=== PATIENT | male | born 1940 | race Caucasian/White ===

== ENCOUNTER → 2016-12-04 | Outpatient (CLI) | payer OTHER ==
[~2016-12-04] MED LIST: IOPAMIDOL (ISOVUE-370) 150 ML BTL IV ONE
[2016-12-04 11:42] LABS: GLOMERULAR FILTRATION RATE > 60
--- NOTE | 2016-12-04 12:44 | CT ---
CT Head Without and With Contrast History: Possible stroke or TIA, gait and mobility issues x3 weeks, right ear hearing loss, left paro tidectomy (benign), history of prostate cancer, Contrast: 66 mL Isovue 300. Comparison: None Technique: Pre- and postcontrast images performed through the brain. Soft tissue and bone window anal yses are reviewed. Dose reduction techniques were utilized. Findings: There is nonenhancing hypodensity in the left external capsule, that may represent a subacu te or old infarction. There is no evidence of hemorrhage. Ventricular size is consistent with the sul ci which are mildly atrophic and consistent with the patient's age. There is no subdural or subarachn oid blood. There is atherosclerotic calcification of both distal internal carotid arteries and of the high cervical left vertebral artery. No obvious major vessel thrombosis. There is no intracranial ma ss or evidence of metastatic disease. No lytic or sclerotic calvarial lesions are identified. Inciden tally noted is nodular mucosal thickening involving the right maxillary sinus and opacifying the ante rior right ethmoid sinuses. The mastoid sinuses and middle ears are normally aerated. The internal au ditory canals are symmetric and normal. 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 If clinically indicated MRI of the br ain would be useful. Results called to Dr. Marty Farmer at 12:38 PM. General information for patients regarding this examination can be found at [email or web address]. If you have questions or comments about this report, please contact me at [phone] (hospital) or [phone] (cell).
== END ==
LOC: FIMAGING 10:55
PROVIDERS: ATTEND Internal Medicine
DX: R26.89 Other abnormalities of gait and mobility (principal)
CPT/HCPCS: 70470; Q9967

== ENCOUNTER 2016-12-06 09:28 | Emergency (ER) | payer OTHER ==
[2016-12-06 09:33] VITALS: TEMP 98.1
--- NOTE | 2016-12-06 09:45 | CPEKG ---
Heart Rate: 66 RR Interval: 909 P-R Interval: 188 QRSD Interval: 108 QT Interval: 456 QTC Interval: 478 P [place]: 41 QRS [place]: 52 T Wave [place]: 45 EKG Severity - BORDERLINE ECG - EKG Impression: SINUS RHYTHM EKG Impression: BORDERLINE PROLONGED QT INTERVAL Electronically Signed By: Renetta Trujillo 06-Dec-2016 15:19:13
--- NOTE | 2016-12-06 10:05 | EDPHY ---
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 Patient was having some balance issues and saw his primary care physician, Dr. Farmer, on Saturday. CT scan revealed possible CVA. He follow-up with Dr. Jeovanny Gonzalez from Neurology last evening. He was told that he did indeed have a stroke. He has been taking Eliquis for atrial fibrillation was told to continue this medication. He is scheduled for a carotid ultrasound today and an MRI on Saturday. Patient presents to the emergency department now because he was having episodes of tearfulness. Patient states he is unable to talk without starting to cry. This is not typical. He has no new headache balance issues. No neck pain. No focal weakness or numbness. No fevers or chills. REVIEW OF SYSTEMS: My complete review of systems is negative except as mentioned in the HPI. Past Medical/Surgical History: Includes hypertension, atrial fibrillation, depression, asthma Past surgical history includes: Prostatectomy, left parotidectomy, tonsillectomy, back surgery, heel surgery Social history: The patient is . Does not smoke use alcohol. Smoking Status: Never smoked Physical Exam: Vitals noted GENERAL: No acute distress, alert. Intermittently tearful on exam. HEENT: Eyes normal to inspection, normal pharynx, no signs of dehydration. NECK: No thyromegaly, no lymphadenopathy, supple. RESPIRATORY: Clear to auscultation bilaterally, no rales, rhonchi or wheezing. CVS: Regular rate and rhythm, no rubs, murmurs, or gallops. ABDOMEN: Soft, nontender, nondistended, no organomegaly. BACK: Normal to inspection, no CVA tenderness. SKIN: Normal color, no rash, warm, dry. No pallor. EXTREMITIES: No pedal edema, no calf tenderness, no Homans sign or cords, no joint swelling. NEURO/PSYCH: Higher functions: Alert and Oriented x3. Normal speech and cognition. Normal mood and affect. Cranial nerves: Normal as tested. Cerebellar: Normal as tested. Good finger to nose, good [id number], normal gait. Peripheral exam: Normal motor exam. Normal sensation. Normal reflexes. Constitutional: Initial Vital Signs Temperature (C) 36.7 C 12/06/16 09:29 Heart Rate 61 12/06/16 09:29 Respiratory Rate 16 12/06/16 09:29 Blood Pressure 104/62 12/06/16 09:29 O2 Sat (%) 91 L 12/06/16 09:29 O2 Delivery Mode Nasal Cannula O2 (L/minute) 2 Allergies/Adverse Reactions: No Known Allergies Allergy (Verified 09/29/14 13:46) Home Medications: Medication Instructions Recorded Fluticasone/Salmeter 100/50Mcg 1 inh IH BID 08/30/14 [Advair 100/50 (*)] Herbals/Supplements -Info Only 1 ea PO DAILY 08/30/14 Losartan Potassium [Cozaar] 100 mg PO DAILY 08/30/14 Multivitamins [Multivitamin (*)] 1 each PO DAILY 08/30/14 Pramipexole Di-HCl [Mirapex 0.25 0.25 mg PO DAILY@1900 08/30/14 mg (*)] Apixaban [Eliquis] 5 mg PO BID #60 tab 09/01/14 Sotalol HCl [Betapace 80 MG (*)] 80 mg PO BID #60 tab 09/01/14 Verapamil ER [Calan SR/ER 120MG 120 mg PO DAILY #30 tab 09/01/14 (*)] Medical Decision Making ED Course/Re-evaluation: In the emergency department I discussed possible etiologies with the patient. Answered all their questions. An IV was placed. Laboratory studies and EKG were ordered. I paged Dr. Jeovanny Gonzalez. EKG shows normal sinus rhythm, normal rate, normal axis, normal intervals. There are no ST or T-wave abnormalities. EKG is normal as interpreted by me. I reviewed the patient's CT imaging from 12/04/2016. Patient has an age indeterminate left external capsule infarction. No active bleeding. I discussed case with Dr. Jeovanny Gonzalez. He felt the patient's symptoms were consistent with pseudobulbar affect. He would treat this as an outpatient and recommended the patient be discharged from the emergency department after his testing here is complete. We discussed the patient was scheduled for carotid ultrasound today at 10, but that he missed that appointment because he was in the emergency department. This test will be completed refer his discharge. Patient has a mildly elevated sodium 146. Chemistry panel is otherwise unremarkable. CBC is normal. INR is 1.26. Carotid ultrasound: Please refer the dictated report by the radiologist. No obstructing lesion. I discussed this with Dr. Martinez. I discussed all the results and the plan with the patient answered all his questions. At time of discharge the patient was doing well. No new complaints. No focal neurologic deficits. The patient will undergo MRI imaging tomorrow. He will follow up with Dr. Gonzalez. He was given warnings prior to leaving will return with worsening symptoms. Differential Diagnosis: My differential includes but is not limited to ischemic CVA, hemorrhagic CVA, dissection, aneurysm, electrolyte abnormality, sugar abnormality, depression - Data Points Laboratory Results: Laboratory Results 12/06/16 09:40 12/06/16 09:40 12/06/16 09:40 WBC 6.90 10^3/uL (3.80-9.50) RBC 5.28 10^6/uL (4.40-6.38) Hgb 16.7 g/dL (13.7-17.5) POC Hgb 17.3 gm/dL (14.5-17.3) Hct 49.3 % (40.0-51.0) POC Hct 51 H % (42.8-50.6) MCV 93.4 fL (81.5-99.8) MCH 31.6 pg (27.9-34.1) MCHC 33.9 g/dL (32.4-36.7) RDW 12.3 % (11.5-15.2) Plt Count 309 10^3/uL (150-400) MPV 9.7 fL (8.7-11.7) Neut % (Auto) 61.9 % (39.3-74.2) Lymph % (Auto) 20.9 % (15.0-45.0) Person % (Auto) 11.3 % (4.5-13.0) Eos % (Auto) 3.9 % (0.6-7.6) Baso % (Auto) 1.7 % (0.3-1.7) Nucleat RBC Rel Count 0.0 % (0.0-0.2) Absolute Neuts (auto) 4.27 10^3/uL (1.70-6.50) Absolute Lymphs (auto) 1.44 10^3/uL (1.00-3.00) Absolute Monos (auto) 0.78 10^3/uL (0.30-0.80) Absolute Eos (auto) 0.27 10^3/uL (0.03-0.40) Absolute Basos (auto) 0.12 H 10^3/uL (0.02-0.10) Absolute Nucleated RBC 0.00 10^3/uL (0-0.01) Immature Gran % 0.3 % (0.0-1.1) Immature Gran # 0.02 10^3/uL (0.00-0.10) PT 15.8 H SEC (12.0-15.0) INR 1.26 H (0.83-1.16) APTT 29.1 SEC (23.0-38.0) POC Sodium 146 H mEq/L (134-144) Sodium 142 mEq/L (134-144) POC Potassium 5.0 mEq/L (3.3-5.0) Potassium 5.0 mEq/L (3.5-5.2) POC Chloride 105 mEq/L (96-108) Chloride 106 mEq/L (97-110) Carbon Dioxide 25 mEq/l (22-31) Anion Gap 11 mEq/L (8-16) POC BUN 30 H mg/dL (7-23) BUN 22 mg/dL (7-23) Creatinine 1.0 mg/dL (0.7-1.3) POC Creatinine 1.0 mg/dL (0.8-1.5) Estimated GFR > 60 Glucose 106 H mg/dL (70-100) POC Glucose 110 H mg/dL (70-100) Calcium 9.2 mg/dL (8.5-10.4) Troponin I < 0.012 ng/mL (0-0.034) Specimen Hemolysis 113 Point of Care Test Results: 12/06/16 09:40 POC Sodium 146 H POC Potassium 5.0 POC Chloride 105 POC BUN 30 H POC Creatinine 1.0 POC Glucose 110 H Departure - Departure Disposition: Home, Routine, Self-Care Clinical Impression: Pseudobulbar affect Condition: Good Instructions: Self Care Measures After a Stroke (ED) Additional Instructions: Return with increasing headache, weakness, numbness or any other concerns. Referrals: Jeovanny Gonzalez MD [Medical Doctor] - 5-7 days, call for appt.
[2016-12-06 10:10] LABS: % IMMATURE GRANULYOCYTES 0.3 % (0.0-1.1); ABSOLUTE IMMATURE GRANULOCYTES 0.02 10^3/uL (0.00-0.10); ADD DIFF? NO; ADD MORPH? NO; ADD SCAN? NO; ATYPICAL LYMPHOCYTE FLAG 10 (0-99); FRAGMENT RBC FLAG 0 (0-99); HEMATOCRIT 49.3 % (40.0-51.0); HEMOGLOBIN 16.7 g/dL (13.7-17.5); LEFT SHIFT FLG 0 (0-99); LIPEMIA HEMOLYSIS FLAG 90 (0-99); MEAN CELL HEMOGLOBIN 31.6 pg (27.9-34.1); MEAN CELL HEMOGLOBIN CONCENTR. 33.9 g/dL (32.4-36.7); MEAN CELL VOLUME 93.4 fL (81.5-99.8); MEAN PLATELET VOLUME 9.7 fL (8.7-11.7); PLATELET CLUMPS FLAG 10 (0-99); PLATELET COUNT 309 10^3/uL (150-400); RED BLOOD CELL COUNT 5.28 10^6/uL (4.40-6.38); RED CELL DISTRIBUTION WIDTH 12.3 % (11.5-15.2)
[2016-12-06 10:17] LABS: INR 1.26 (0.83-1.16); PROTIME(PATIENT) 15.8 SEC (12.0-15.0)
[2016-12-06 10:18] LABS: APTT 29.1 SEC (23.0-38.0)
[2016-12-06 10:22] LABS: ANION GAP 11 mEq/L (8-16); CALCIUM 9.2 mg/dL (8.5-10.4); CARBON DIOXIDE 25 mEq/l (22-31); CHLORIDE 106 mEq/L (97-110); GLOMERULAR FILTRATION RATE > 60; GLUCOSE 106 mg/dL (70-100); SODIUM 142 mEq/L (134-144); SPECIMEN HEMOLYSIS 113
[2016-12-06 10:31] LABS: TROPONIN I < 0.012 ng/mL (0-0.034)
--- NOTE | 2016-12-06 12:24 | US ---
Bilateral Duplex Carotid Sonography Clinical Indications: 76-year-old male in the ED with a history medically-controlled hypertension, TI A(s), and balance problems. Rule out hemodynamically significant stenosis. Technique: The cervical portions of the carotid and vertebral arteries were imaged and interrogated by color and pulsed Doppler. Spectral analysis was performed. Cine clips are stored on PACS. COMPARISON STUDY: None. Findings: Right Carotid Artery: The common carotid artery, bifurcation, and origin of the internal and externa l carotid artery are well imaged. Doppler velocity estimates and color Doppler spectra are normal, w ith no sonographic evidence of a flow-limiting stenosis. The peak systolic velocity in the internal c arotid artery is 53 cm/s, with a peak diastolic velocity of 23 cm/s. The ICA to CCA systolic and farris tolic ratios are normal. Left Carotid Artery: The common carotid artery, bifurcation, and origin of the internal and external carotid artery are well imaged. Doppler velocity estimates and color Doppler spectra are normal, wi th no sonographic evidence of a flow-limiting stenosis. There is some echogenic atherosclerotic plaqu e involving the carotid bulb extending into the proximal internal and external carotid arteries. The peak systolic velocity in the internal carotid artery is 43 cm/s, with a peak diastolic velocity of 1 6 cm/s. The ICA to CCA systolic and diastolic ratios are normal. The ICA right to left systolic ratio is normal. Vertebral Arteries: Antegrade flow is shown by pulsed Doppler of each vertebral artery. The peak sys tolic velocity in the right vertebral artery is 31 cm/s, and in the left vertebral artery is 29 cm/s. Impression: 1. There is mild atherosclerotic plaque involving the left carotid artery; however, there is no hemod ynamically significant ICA stenosis on either side. 2. Patent, antegrade vertebral arteries. Results were conveyed to Dr. Mildred Trujillo. Measurement of carotid stenosis is based on velocity parameters that correlate the residual internal carotid diameter with [place] Symptomatic Carotid Endarterectomy Trial (NASCET) based stenosis levels. A Document Only message has been documented for MILDRED TRUJILLO in the [employer] system on 12/06/2016 12:21, Message ID [id number].
[2016-12-06 12:28] VITALS: BP 128/90; PULSE 86; RESP 18; O2SAT 96
== END 2016-12-06 12:58 | disposition home or self-care (01) ==
DX: F48.2 Pseudobulbar affect (principal); I10 Essential (primary) hypertension; J45.909 Unspecified asthma, uncomplicated
CPT/HCPCS: 82947-QW

== ENCOUNTER → 2016-12-10 | Outpatient (CLI) | payer OTHER | LOC: BHFA 10:00 | PROVIDERS: ATTEND Internal Medicine Cardiovascular Disease | DX: I63.9 Cerebral infarction, unspecified (principal) ==

== ENCOUNTER 2017-01-07 08:26 | Inpatient (IN) | payer OTHER ==
[2017-01-07] MEDS ORDERED: ONDANSETRON 4 MG/2 ML VIAL IVP ONE (08:48)
[2017-01-07] MEDS ORDERED: fentaNYL 100 MCG/2 ML INJ IVP ONE (08:48)
[2017-01-07 09:00] LABS: % IMMATURE GRANULYOCYTES 0.4 % (0.0-1.1); ABSOLUTE IMMATURE GRANULOCYTES 0.03 10^3/uL (0.00-0.10); ADD DIFF? NO; ADD MORPH? NO; ADD SCAN? NO; ATYPICAL LYMPHOCYTE FLAG 0 (0-99); FRAGMENT RBC FLAG 0 (0-99); HEMATOCRIT 45.8 % (40.0-51.0); HEMOGLOBIN 15.4 g/dL (13.7-17.5); LEFT SHIFT FLG 0 (0-99); LIPEMIA HEMOLYSIS FLAG 80 (0-99); MEAN CELL HEMOGLOBIN CONCENTR. 33.6 g/dL (32.4-36.7); MEAN PLATELET VOLUME 9.9 fL (8.7-11.7); PLATELET CLUMPS FLAG 0 (0-99); PLATELET COUNT 212 10^3/uL (150-400); RED BLOOD CELL COUNT 4.82 10^6/uL (4.40-6.38); RED CELL DISTRIBUTION WIDTH 13.4 % (11.5-15.2)
--- NOTE | 2017-01-07 09:04 | EDPHY ---
H & P Time Seen by Provider: 01/07/17 08:46 HPI/ROS: Chief complaint. Abdominal pain HPI. 76-year-old male presents emergency department with right lower quadrant pain. He was sitting on the toilet this morning had sudden onset of right mid abdominal pain and maybe radiation to the right flank. He does have a kidney stone history but not for many years. Today he had nausea without vomiting. He has not had urinary symptoms. He notes it does not hurt to push on his abdomen though it hurts him inside. He feels that he can't quite find a comfortable position. ROS Constitutional. no fever/chills, no weakness Eyes. no problems with vision ENT. no sore throat, no nasal drainage Cardiovascular. no chest pain Respiratory. no shortness of breath, no cough Abdominal. Right mid abdominal pain with nausea . no problems urinating MS. no calf pain/swelling, no neck/back pain, no joint pain Skin. no rash Lymph. no swollen glands Neuro. no headache, no dizziness, no difficulty walking or with speech Past Medical/Surgical History: Past medical history is significant for hypertension, atrial fibrillation, depression, asthma, prostate cancer Social History: , nonsmoker, no alcohol Smoking Status: Never smoked Physical Exam: General Appearance: Alert well-developed male mild distress vitals are stable Eyes: Pupils equal and round no pallor or injection. ENT, Mouth: Mucous membranes are moist. Respiratory: There are no retractions, lungs are clear to auscultation. Cardiovascular: Regular rate and rhythm. Gastrointestinal: Abdomen is soft and nontender, no masses, bowel sounds normal. Patient shows me he is tender in the right flank and right mid abdomen but there is no discomfort with deep palpation. No tenderness at McBurney's point. Normal bowel sounds. No masses Neurological: Awake and alert, sensory and motor exams grossly normal. Skin: Warm and dry, no rashes. Musculoskeletal: Neck is supple nontender. Extremities symmetrical, full range of motion. Psychiatric: Patient is oriented X 3, there is no agitation. Constitutional: Initial Vital Signs Temperature (C) 36.5 C 01/07/17 08:34 Heart Rate 99 01/07/17 08:34 Respiratory Rate 16 01/07/17 08:34 Blood Pressure 105/86 H 01/07/17 08:34 O2 Sat (%) 92 01/07/17 08:34 O2 Delivery Mode Nasal Cannula O2 (L/minute) 2 Allergies/Adverse Reactions: No Known Allergies Allergy (Verified 09/29/14 13:46) Home Medications: Medication Instructions Recorded Fluticasone/Salmeter 100/50Mcg 1 inh IH BID 08/30/14 [Advair 100/50 (*)] Herbals/Supplements -Info Only 1 ea PO DAILY 08/30/14 Losartan Potassium [Cozaar] 100 mg PO DAILY 08/30/14 Multivitamins [Multivitamin (*)] 1 each PO DAILY 08/30/14 Pramipexole Di-HCl [Mirapex 0.25 0.25 mg PO DAILY@1900 08/30/14 mg (*)] Apixaban [Eliquis] 5 mg PO BID #60 tab 09/01/14 Verapamil ER [Calan SR/ER 120MG 120 mg PO DAILY #30 tab 09/01/14 (*)] Clonazepam 01/07/17 Diltiazem 01/07/17 Losartan Potassium 01/07/17 Norvasc 01/07/17 Wellbutrin Xl 01/07/17 Medical Decision Making - Diagnostics Imaging: Noncontrast CT shows hemorrhagic cyst measuring 3.5 x 2.5 x 3 cm right upper pole of the right kidney. Blood in inflammation present. No ureteral stone. This is reviewed by me and discussed with Dr. Carpio who also recommends repeat CT with IV contrast CT with IV contrast reviewed by me and discussed with Ultrasound reviewed by me and discussed with Dr. Carpio shows no vascular flow to the mass in the kidney. It does appear that this is probably a solid mass with hemorrhage. Procedures: IV normal saline. Fentanyl and then Dilaudid for pain. Zofran for nausea Urine dips negative for blood ED Course/Re-evaluation: Serial evaluations patient is stable but continues to have some discomfort. He has required IV pain medication for pain control. On re-evaluation patient is stable. The patient and I and his discussed imaging study results, treatment plan including need for admission and further evaluation. They expressed understanding and agreement I consulted and discussed the case with Dr. smith, hospitalist, who agrees to the admission. I consulted and discussed the case with Dr. Hassan, urology, who will see the patient in the hospital. Differential Diagnosis: I considered pyelonephritis, kidney stone. It appears that the patient likely has a renal cancer that has hemorrhaged into the mass - Data Points Laboratory Results: Laboratory Results 01/07/17 08:44 01/07/17 08:44 01/07/17 01/07/17 01/07/17 08:53 08:44 08:44 WBC 7.97 10^3/uL 10^3/uL (3.80-9.50) RBC 4.82 10^6/uL 10^6/uL (4.40-6.38) Hgb 15.4 g/dL g/dL (13.7-17.5) Hct 45.8 % % (40.0-51.0) MCV 95.0 fL fL (81.5-99.8) MCH 32.0 pg pg (27.9-34.1) MCHC 33.6 g/dL g/dL (32.4-36.7) RDW 13.4 % % (11.5-15.2) Plt Count 212 10^3/uL 10^3/uL (150-400) MPV 9.9 fL fL (8.7-11.7) Neut % (Auto) 60.8 % % (39.3-74.2) Lymph % (Auto) 21.5 % % (15.0-45.0) [place] % (Auto) 11.7 % % (4.5-13.0) Eos % (Auto) 4.5 % % (0.6-7.6) Baso % (Auto) 1.1 % % (0.3-1.7) Nucleat RBC Rel Count 0.0 % % (0.0-0.2) Absolute Neuts (auto) 4.85 10^3/uL 10^3/uL (1.70-6.50) Absolute Lymphs (auto) 1.71 10^3/uL 10^3/uL (1.00-3.00) Absolute Monos (auto) 0.93 10^3/uL H 10^3/uL (0.30-0.80) Absolute Eos (auto) 0.36 10^3/uL 10^3/uL (0.03-0.40) Absolute Basos (auto) 0.09 10^3/uL 10^3/uL (0.02-0.10) Absolute Nucleated RBC 0.00 10^3/uL 10^3/uL (0-0.01) Immature Gran % 0.4 % % (0.0-1.1) Immature Gran # 0.03 10^3/uL 10^3/uL (0.00-0.10) PT 14.9 SEC SEC (12.0-15.0) INR 1.17 H (0.83-1.16) APTT 26.4 SEC SEC (23.0-38.0) Sodium 142 mEq/L mEq/L (134-144) Potassium 3.9 mEq/L mEq/L (3.5-5.2) Chloride 107 mEq/L mEq/L (97-110) Carbon Dioxide 26 mEq/l mEq/l (22-31) Anion Gap 9 mEq/L mEq/L (8-16) BUN 18 mg/dL mg/dL (7-23) Creatinine 0.8 mg/dL mg/dL (0.7-1.3) Estimated GFR > 60 Glucose 130 mg/dL H mg/dL (70-100) Calcium 9.1 mg/dL mg/dL (8.5-10.4) Medications Given: Discontinued Medications Fentanyl (Sublimaze) 100 mcg IVP EDNOW ONE Stop: 01/07/17 08:49 Last Admin: 01/07/17 08:55 Dose: 100 mcg Hydromorphone HCl (Dilaudid) 0.5 mg IVP Q2HRS PRN PRN Reason: Pain, Severe Unable to Take PO Stop: 01/07/17 12:01 Last Admin: 01/07/17 12:07 Dose: 0.5 mg Sodium Chloride (Ns) 1,000 mls @ 0 mls/hr IV ONCE ONE PRN Reason: Wide Open Stop: 01/07/17 09:13 Last Admin: 01/07/17 09:15 Dose: 1,000 mls Sodium Chloride (Ns) 1,000 mls @ 0 mls/hr IV ONCE ONE PRN Reason: Wide Open Stop: 01/07/17 10:17 Last Admin: 01/07/17 10:20 Dose: 1,000 mls Ondansetron HCl (Zofran) 4 mg IVP EDNOW ONE Stop: 01/07/17 08:49 Last Admin: 01/07/17 08:55 Dose: 4 mg Departure - Departure Disposition: [facility] Inpatient Acute Clinical Impression: Acute renal hemorrhage Condition: Fair
[2017-01-07] MEDS ORDERED: NS 1,000 ML IV ONE ×2 (09:12→10:16)
[2017-01-07] MEDS ORDERED: HYDROmorphONE/DILAUDID 1 MG/ML SYR ONE ×3 (09:15→14:32)
[2017-01-07 09:20] LABS: ANION GAP 9 mEq/L (8-16); CALCIUM 9.1 mg/dL (8.5-10.4); CARBON DIOXIDE 26 mEq/l (22-31); CHLORIDE 107 mEq/L (97-110); CREATININE 0.8 mg/dL (0.7-1.3); GLOMERULAR FILTRATION RATE > 60; GLUCOSE 130 mg/dL (70-100); POTASSIUM 3.9 mEq/L (3.5-5.2); SODIUM 142 mEq/L (134-144)
[2017-01-07] MEDS: HYDROmorphONE/DILAUDID 1 MG/ML SYR IVP PRN ×5 (09:20→21:29)
[2017-01-07] MEDS ORDERED: IOPAMIDOL (ISOVUE-300) 100 ML BTL IV ONE (10:20)
[2017-01-07 11:37] LABS: INR 1.17 (0.83-1.16); PROTIME(PATIENT) 14.9 SEC (12.0-15.0)
[2017-01-07 11:38] LABS: APTT 26.4 SEC (23.0-38.0)
[2017-01-07] MEDS ORDERED: ONDANSETRON DISINTEGRATING 4 MG TAB PO PRN (14:01)
[2017-01-07] MEDS ORDERED: PROMETHAZINE HCL 25 MG/ML INJ IVP PRN (14:01)
[2017-01-07] MEDS ORDERED: PROMETHAZINE HCL 25 MG TAB PO PRN (14:01)
[2017-01-07] MEDS ORDERED: ACETAMINOPHEN 325 MG TAB PO PRN (14:01)
[2017-01-07] MEDS ORDERED: PROMETHAZINE HCL 25 MG/ML INJ ONE (14:32)
--- NOTE | 2017-01-07 14:41 | PDGENHP ---
History and Physical - Chief Complaint Acute abdominal pain - History of Present Illness PCP: Dr. Farmer Primary neurologist: Dr. Gonzalez Primary school clerk Dr. Allison Primary urologist Dr. Briones HPI: 76-year-old male presenting with acute abdominal pain characterized as sharp, 8/10 pain located his right flank and radiating posteriorly with associated nausea. Onset of symptoms was 8:00 a.m. on the day of presentation and duration has been persistent thereafter. Pain has been somewhat alleviated by fentanyl and Dilaudid received in the emergency department. Pain is exacerbated by palpation. Patient denies any hematuria and he reports his last bowel movement was on the day prior to this presentation. The pain began while the patient was sitting on the toilet attempting to move his bowels. Prior to his onset of symptoms, the patient had otherwise been feeling well. Did not take his morning medications on the day of this presentation. His last dosage of Eliquis was last night. He is not utilizing any aspirin or [id number] nonsteroidal anti-inflammatory medications. History Information - Allergies/Home Medication List Allergies/Adverse Reactions: No Known Allergies Allergy (Verified 09/29/14 13:46) Home Medications: Herbals/Supplements -Info Only 1 ea PO DAILY 08/30/14 [Last Taken Unknown] Multivitamins [Multivitamin (*)] 1 each PO DAILY 08/30/14 [Last Taken 08/30/14] Pramipexole Di-HCl [Mirapex 0.25 mg (*)] 0.25 mg PO DAILY@1900 08/30/14 [Last Taken 08/29/14] Bupropion HCl [Wellbutrin Xl] 300 mg PO DAILY 01/07/17 [Last Taken Unknown] Diltiazem Cd [Cardizem ER 120 MG (*)] 120 mg PO DAILY 01/07/17 [Last Taken Unknown] Losartan Potassium [Cozaar] 100 mg PO DAILY 01/07/17 [Last Taken Unknown] amLODIPine BESYLATE [Norvasc 5 mg (*)] 5 mg PO HS 01/07/17 [Last Taken Unknown] clonazePAM [Klonopin (*)] 0.25 mg PO BID 01/07/17 [Last Taken Unknown] I have personally reviewed and updated: family history, medical history, social history, surgical history - Past Medical History atrial fibrillation (Paroxysmal, on systemic anticoagulation), CVA (With pseudobulbar symptoms 1 month ago), hypertension Additional medical history: ELLY. Asthma. Prostate cancer status post radical prostatectomy and radiation therapy. Parotid gland carcinoma - Surgical History Additional surgical history: Radical prostatectomy, parotid gland removal - Social History Smoking Status: Never smoked Alcohol Use: Occasionally (No history of alcohol withdrawal) Drug Use: None Additional social history: Patient normally independent in his ADLs, walks regularly and bikes without any chest pain or recent reduction in exercise tolerance Review of Systems ROS: 10pt was reviewed & negative except for what was stated in HPI & below Gastrointestinal: Reports: abdominal pain, nausea Physical Exam Temp Pulse Resp BP Pulse Ox 36.5 C 95 16 100/67 96 01/07/17 08:34 01/07/17 14:00 01/07/17 14:00 01/07/17 14:00 01/07/17 14:00 Constitutional: no apparent distress, appears nourished, not in pain Eyes: PERRL, anicteric sclera, EOMI Ears, Nose, Mouth, Throat: hearing normal, other (Tacky mucous membranes) Cardiovascular: regular rate and rhythym, no murmur, rub, or gallop, No irregularly irregular, No tachycardia, No edema Respiratory: no respiratory distress, no rales or rhonchi, clear to auscultation Gastrointestinal: tenderness (Right flank), guarding (Voluntary), No normoactive bowel sounds (Hypoactive), No distension Genitourinary: no bladder fullness, no bladder tenderness Skin: warm, normal color, no rashes or abrasions, no fluctuance, no induration, No mottled Neurologic: AAOx3, sensation intact bilaterally Psychiatric: interacting appropriately, not anxious, not encephalopathic, thought process linear Lab Data & Imaging Review 01/07/17 08:44 01/07/17 08:44 WBC 7.97 10^3/uL (3.80-9.50) 01/07/17 08:44 RBC 4.82 10^6/uL (4.40-6.38) 01/07/17 08:44 Hgb 15.4 g/dL (13.7-17.5) 01/07/17 08:44 Hct 45.8 % (40.0-51.0) 01/07/17 08:44 MCV 95.0 fL (81.5-99.8) 01/07/17 08:44 MCH 32.0 pg (27.9-34.1) 01/07/17 08:44 MCHC 33.6 g/dL (32.4-36.7) 01/07/17 08:44 RDW 13.4 % (11.5-15.2) 01/07/17 08:44 Plt Count 212 10^3/uL (150-400) 01/07/17 08:44 MPV 9.9 fL (8.7-11.7) 01/07/17 08:44 Neut % (Auto) 60.8 % (39.3-74.2) 01/07/17 08:44 Lymph % (Auto) 21.5 % (15.0-45.0) 01/07/17 08:44 [place]one % (Auto) 11.7 % (4.5-13.0) 01/07/17 08:44 Eos % (Auto) 4.5 % (0.6-7.6) 01/07/17 08:44 Baso % (Auto) 1.1 % (0.3-1.7) 01/07/17 08:44 Nucleat RBC Rel Count 0.0 % (0.0-0.2) 01/07/17 08:44 Absolute Neuts (auto) 4.85 10^3/uL (1.70-6.50) 01/07/17 08:44 Absolute Lymphs (auto) 1.71 10^3/uL (1.00-3.00) 01/07/17 08:44 Absolute Monos (auto) 0.93 10^3/uL (0.30-0.80) H 01/07/17 08:44 Absolute Eos (auto) 0.36 10^3/uL (0.03-0.40) 01/07/17 08:44 Absolute Basos (auto) 0.09 10^3/uL (0.02-0.10) 01/07/17 08:44 Absolute Nucleated RBC 0.00 10^3/uL (0-0.01) 01/07/17 08:44 Immature Gran % 0.4 % (0.0-1.1) 01/07/17 08:44 Immature Gran # 0.03 10^3/uL (0.00-0.10) 01/07/17 08:44 PT 14.9 SEC (12.0-15.0) 01/07/17 08:53 INR 1.17 (0.83-1.16) H 01/07/17 08:53 APTT 26.4 SEC (23.0-38.0) 01/07/17 08:53 Sodium 142 mEq/L (134-144) 01/07/17 08:44 Potassium 3.9 mEq/L (3.5-5.2) 01/07/17 08:44 Chloride 107 mEq/L (97-110) 01/07/17 08:44 Carbon Dioxide 26 mEq/l (22-31) 01/07/17 08:44 Anion Gap 9 mEq/L (8-16) 01/07/17 08:44 BUN 18 mg/dL (7-23) 01/07/17 08:44 Creatinine 0.8 mg/dL (0.7-1.3) 01/07/17 08:44 Estimated GFR > 60 01/07/17 08:44 Glucose 130 mg/dL (70-100) H 01/07/17 08:44 Calcium 9.1 mg/dL (8.5-10.4) 01/07/17 08:44 Visualized and Interpreted imaging results: Yes Interpretation: Right-sided renal mass with hemorrhage, no hydronephrosis, solid appearing, 3 cm x 3 cm Assessment & Plan Assessment: 76-year-old male presenting with acute renal hemorrhage and renal mass Plan: 1. Renal hemorrhage. Acute, visualized on CT and ultrasound, occurred in the setting of systemic anticoagulation with Eliquis and likely underlying renal mass -discussed with Dr. Montana, he reports to me that he has consulted Dr. Hassan who will communicate with the patient's primary urologist -hemoglobin stable at 15.4 -hold Eliquis -likely cause of patient's pain, IV pain medications and antiemetics, adjusted to Dilaudid ACCOUNT LEADER if unable to accomplish successful relief with bolus dosing 2. Renal mass. Acute, new problem this provider, further workup indicated. Hemorrhagic cyst versus solid tumor malignancy -urology consultation to consider nephrectomy and pathology evaluation of the specimen -remain NPO -RCRI score of 0 conferring 0.5% perioperative cardiovascular risk of complication, resulting in low cardiac risk for intermediate risk surgery -patient's metabolic equivalents are good and exercise has not recently declined , so there is no indication for pre-op cardiac risk stratification -last dose of eliquis 01/06 PM, and ideally patient should be off for 24hrs prior to surgery, so if surg is non-emergent today, would rec performing tomorrow if safe to wait 3. Paroxysmal Atrial Fibrillation. Currently in NSR, give daily dilt dose now to prevent RVR julisa-op, TIA vs. CVA 1 month ago -hold eliquis, bridging therapy contraindicated given active bleed -12/06/2016 emergency department report by Dr. Wallace characterizing patient's most recent workup for CVA and pseudomonal bulbar symptoms 4. HTN. Chronic, hold ARB today, OK to start amlodipine this evening Diet. NPO, IVF Code. Full per patient, MPOA PPx. High risk, pharm contraindicated, SCDs Dispo. Anticipated date of discharge uncertain this time, anticipated length stay is greater than 48 hours warranting inpatient admission status for acute renal hemorrhage and mass warranting further workup and surgical intervention in the setting of high risk atrial fibrillation and TIA versus CVA 1 month ago.
[2017-01-07] MEDS: NS W/ 20 KCl/L 1,000 ML IV SCH (16:24)
--- NOTE | 2017-01-07 18:36 | GCON ---
[f rep st] CONSULTATION UROLOGY CONSULTATION DATE OF CONSULTATION: 01/07/2017 REASON FOR CONSULTATION: Right abdominal and flank pain. HISTORY: This is a 76-year-old gentleman, who developed an acute onset of right upper quadrant abdominal pain while attempting to void early this morning. The pain became severe enough that he presented to the emergency room as a result. Some time following onset of the right upper quadrant pain, it began to migrate to the right flank and has been there since then. Since the onset of pain, he has also had intermittent nausea, but no emesis. He denies any changes in his voiding pattern, dysuria, gross hematuria, nor changes in appetite. He has not had a recent pain related to diet. He has been somewhat constipated since being diagnosed with his neurologic event last month. He does have a history of kidney stones, but has not had a symptomatic 1 in about 40 years to his knowledge. PAST MEDICAL HISTORY: Notable for paroxysmal atrial fibrillation, CVA (versus possible TIA) approximately 1 month ago, hypertension, depression, remote history of nephrolithiasis (as above), gout, restless legs syndrome, sleep apnea (uses CPAP q.h.s.), and prior history of prostate cancer. PAST SURGICAL HISTORY: Includes open radical prostatectomy at [facility] in November 2003, left parotid gland cancer requiring parotidectomy, back surgery, possible kidney stone procedure many years ago. MEDICATIONS ON ADMISSION: Norvasc 5 mg q.h.s., Wellbutrin XL 300 mg daily, Klonopin 0.25 mg b.i.d., Cardizem ER 120 mg daily, Cozaar 100 mg daily, Mirapex 0.25 mg daily, Eliquis (started approximately August 2014, currently held). MEDICAL ALLERGIES: None known. FAMILY HISTORY: Noncontributory. SOCIAL HISTORY: The patient and his live in the [facility]. He denies use of tobacco products, and consumes an occasional alcoholic drink. He is a retired metallurgist. He has 2 children. REVIEW OF SYSTEMS: Unremarkable, other than mentioned above in the HPI and past medical history. He did have some temporary issues with vision, reading, and writing for about 3 days following his neurologic event last month that have all since cleared. PHYSICAL EXAM: GENERAL: Obese, pleasant white male lying supine in bed, in no acute distress. VITAL SIGNS: Blood pressure 137/79, pulse 100, respiratory rate 16, oxygen saturation 90% on 2 L nasal cannula, temperature 36.4 Celsius. BMI 31. HEENT: Normocephalic, atraumatic. NECK: Supple. HEART: Regular rate. CHEST: Unlabored respiratory pattern. ABDOMEN: Obese. Mild right upper quadrant tenderness to deep palpation without peritoneal signs, nor involuntary guarding. No rebound. No abnormal mass could be definitively palpated. BACK: Moderate right CVA tenderness to percussion. EXTREMITIES: Warm without cyanosis, clubbing, nor significant edema. VASCULAR: Normal femoral, dorsalis pedis, and posterior tibial pulses Bilaterally. NEUROLOGIC: He is alert and oriented. He answers all questions appropriately with normal mood and affect. IMAGING: Iodinated abdominopelvic CT scan today: Upon my review, notable for the following renal calculi: 5.5 x 4 mm left midpole, 2 separate 4 x 3 mm right midpole, 2 mm right lower pole and left lower pole. No hydronephrosis, no ureteral calculi. There is also a 4 x 3 x 3 cm long anteromedial nonenhancing right upper pole renal mass with some associated surrounding stranding. Multiple large gallstones also seen. No abnormal renal enhancing masses otherwise appreciated. An approximately 3 cm right lower pole simple renal cyst is also noted. Renal ultrasound today: Upon my review, notable for a 3.4 x 3 cm right upper pole renal mass that is relatively isoechoic with parenchyma. There is also a 3 cm right lower pole simple renal cyst. Multiple gallstones again noted. LABORATORY: Chemistry panel today reveals normal basic panel, creatinine 0.8. Coagulation parameters reveal INR 1.17. CBC today is normal. No urinalysis has been obtained. IMPRESSION: 1. Right flank pain with prior symptom onset of right upper quadrant abdominal pain and associated nausea. Differential diagnosis would include spontaneous passage of ureteral stone, symptomatic cholelithiasis, and possible spontaneous bleeding within right upper pole renal cyst. 2. Bilateral nephrolithiasis. These would not be a cause for his current symptom presentation. 3. Approximately 4 cm renal mass, not enhancing on CT scan. Therefore, not worrisome for malignancy. However, the CT and ultrasound imaging could be consistent with a hemorrhagic renal cyst. 4. Significant cholelithiasis. 5. Prior history of prostate cancer. Most recent PSA was undetectable in April 2014. PLAN: 1. Continue observation. No need for surgical intervention at this time. He therefore may be allowed to eat. 2. I have reviewed the case with the patient, his , and Dr. Arzate from [facility] Hospitalist Service in significant detail. We will make plans to perform HIDA scan of his gallbladder tomorrow to evaluate for active symptomatic cholelithiasis. 3. Due to the possibility that he might have bled into a renal cyst, I would recommend holding Eliquis for the present time. Thank you for this consultation. I will continue to follow. /[id number]/MODL MTDD
[2017-01-07] MEDS: PRAMIPEXOLE 0.25 MG TAB PO SCH (18:40)
[2017-01-07] MEDS: DILTIAZEM CD 120 MG CAP PO SCH (18:40)
[2017-01-07] MEDS: ONDANSETRON 4 MG/2 ML VIAL IVP PRN (18:47)
[2017-01-07] MEDS: amLODIPine BESYLATE 5 MG TAB PO SCH (21:21)
[2017-01-07] MEDS: clonazePAM 0.5 MG TAB PO SCH (21:22)
[2017-01-08] MEDS: NS W/ 20 KCl/L 1,000 ML IV SCH (03:36)
[2017-01-08] MEDS: ONDANSETRON 4 MG/2 ML VIAL IVP PRN ×2 (03:36→11:52)
[2017-01-08] MEDS: HYDROmorphONE/DILAUDID 1 MG/ML SYR IVP PRN ×2 (03:37→11:37)
[2017-01-08 03:55] LABS: COLOR YELLOW; LEUKOCYTE ESTERASE,URINE NEGATIVE (NEGATIVE); NITRITE,URINE NEGATIVE (NEGATIVE)
[2017-01-08 05:33] LABS: % IMMATURE GRANULYOCYTES 0.4 % (0.0-1.1); ABSOLUTE IMMATURE GRANULOCYTES 0.04 10^3/uL (0.00-0.10); ADD DIFF? NO; ADD MORPH? NO; ADD SCAN? NO; ATYPICAL LYMPHOCYTE FLAG 0 (0-99); FRAGMENT RBC FLAG 0 (0-99); HEMATOCRIT 39.3 % (40.0-51.0); HEMOGLOBIN 12.9 g/dL (13.7-17.5); LEFT SHIFT FLG 0 (0-99); LIPEMIA HEMOLYSIS FLAG 80 (0-99); MEAN CELL HEMOGLOBIN 31.6 pg (27.9-34.1); MEAN CELL HEMOGLOBIN CONCENTR. 32.8 g/dL (32.4-36.7); MEAN CELL VOLUME 96.3 fL (81.5-99.8); MEAN PLATELET VOLUME 10.5 fL (8.7-11.7); PLATELET CLUMPS FLAG 0 (0-99); PLATELET COUNT 171 10^3/uL (150-400); RED BLOOD CELL COUNT 4.08 10^6/uL (4.40-6.38); RED CELL DISTRIBUTION WIDTH 13.5 % (11.5-15.2)
[2017-01-08 05:51] LABS: ALANINE AMINOTRANSFERASE 57 IU/L (21-72); ALBUMIN 3.1 g/dL (3.5-5.0); ALKALINE PHOSPHATASE 66 IU/L (38-126); ANION GAP 6 mEq/L (8-16); ASPARTATE AMINOTRANSFERASE 38 IU/L (17-59); BILIRUBIN,TOTAL 0.8 mg/dL (0.1-1.4); CALCIUM 8.3 mg/dL (8.5-10.4); CARBON DIOXIDE 25 mEq/l (22-31); CHLORIDE 105 mEq/L (97-110); CREATININE 0.7 mg/dL (0.7-1.3); GLOMERULAR FILTRATION RATE > 60; GLUCOSE 118 mg/dL (70-100); POTASSIUM 4.2 mEq/L (3.5-5.2); SODIUM 136 mEq/L (134-144)
[2017-01-08] MEDS ORDERED: MAGNESIUM HYDROXIDE 30 ML UDCUP PO PRN (08:25)
[2017-01-08] MEDS ORDERED: POLYETHYLENE GLYCOL 3350 17 GM PKT PO PRN (08:25)
[2017-01-08] MEDS ORDERED: BISACODYL 10 MG SUPP PR PRN (08:25)
[2017-01-08] MEDS ORDERED: HYDROmorphONE/DILAUDID 2 MG TAB PO PRN (08:25)
[2017-01-08] MEDS ORDERED: LACTULOSE 20 GM/30 ML UDCUP PO PRN (08:25)
[2017-01-08] MEDS ORDERED: Herbals/Supplements -Info Only PO SCH (09:00)
[2017-01-08] MEDS: LOSARTAN POTASSIUM 50 MG TAB PO SCH (11:55)
[2017-01-08] MEDS: buPROPion XL 150 MG TAB PO SCH (11:55)
[2017-01-08] MEDS: clonazePAM 0.5 MG TAB PO SCH ×2 (11:56→19:58)
[2017-01-08] MEDS: MULTIVITAMINS 1 EACH TAB PO SCH (11:56)
[2017-01-08] MEDS: DILTIAZEM CD 120 MG CAP PO SCH (11:56)
[2017-01-08] MEDS: SENNOSIDES/DOCUSATE SODIUM TAB PO SCH ×2 (12:02→19:58)
--- NOTE | 2017-01-08 15:44 | HOSPPROG ---
Hospitalist Progress Note Assessment/Plan: Assessment: 76-year-old male presenting with acute renal hemorrhage and abdominal pain Plan: 1. Renal hemorrhage. Acute, visualized on CT and ultrasound, occurred in the setting of systemic anticoagulation with Eliquis and either mass or cyst -discussed with Dr. Briones, the area where hemorrhage occurred is not enhancing and is thus unlikely to be malignancy -patient's pain is localized to the area, and I believe it is likely 2/2 increased pressure in the affected area (possibly hemorrhagic cyst) -HIDA w/o cholecystitis -UA w/o e/o hematuria, making nephrolithiasis as cause of pain unlikely -hemoglobin stable at 12.9 -hold Eliquis -RCRI score of 0 conferring 0.5% perioperative cardiovascular risk of complication, resulting in low cardiac risk for intermediate risk surgery -patient's metabolic equivalents are good and exercise has not recently declined , so there is no indication for pre-op cardiac risk stratification -will defer to Dr. Briones whether surgical intervention or IR drainage indicated 2. Abdominal pain. Acute, likely 2/2 above -has been requiring dilaudid IV q2, attempt to cycle in PO dilaudid -bowel regimen -IS -hx of opiate addiction, patient would prefer not to be on opiates outside of this acute period, if possible 3. Paroxysmal Atrial Fibrillation. Currently in NSR -holding eliquis, bridging therapy contraindicated given active bleed -most recent workup for CVA and pseudomonal bulbar symptoms 1 month ago, TIA vs. CVA, will require CVA ppx after this acute event 4. HTN. Chronic, on home Rx Diet. Regular Code. Full per patient, MPOA PPx. High risk, pharm contraindicated, SCDs Dispo. Anticipated date of discharge 01/09, pending surgical interventions Subjective: patient reports the pain in his right flank remains present, requiring IV Dilaudid for control Objective: Vital Signs Temp Pulse Resp BP Pulse Ox 36.9 C 82 16 118/70 90 L 01/08/17 11:05 01/08/17 11:05 01/08/17 11:05 01/08/17 11:05 01/08/17 11:05 Laboratory Results 01/08/17 04:23 01/08/17 04:23 01/07/17 01/08/17 01/09/17 05:59 05:59 05:59 Intake Total 1505 Output Total 350 Balance 1155 PT 14.9 SEC (12.0-15.0) 01/07/17 08:53 INR 1.17 (0.83-1.16) H 01/07/17 08:53 - Physical Exam Constitutional: no apparent distress, obese, uncomfortable, No not in pain Cardiovascular: regular rate and rhythym, no murmur, rub, or gallop, No irregularly irregular, No edema Respiratory: no respiratory distress, no rales or rhonchi, clear to auscultation Gastrointestinal: normoactive bowel sounds, tenderness ( right flank), other ( negative Ching's), No guarding Skin: no rashes or abrasions, no fluctuance, no induration Neurologic: AAOx3, sensation intact bilaterally Psychiatric: interacting appropriately, not anxious, not encephalopathic, thought process linear ICD10 Worksheet Patient Problems: Problems Problem Status Onset Atrial fibrillation Acute
--- NOTE | 2017-01-08 19:01 | SOAPPROG ---
SOAP Progress Note Assessment/Plan: Assessment: 1. Right flank pain - improved this afternoon and evening, per pt. Most likely due to hemorrhagic right renal cyst. If this is indeed the source of his pain, this should continue to gradually improve over the 1-2 weeks. 2. Asymptomatic nephrolithiasis. 3. Cholelithiasis - negative HIDA scan earlier today. Imaging, labs, VS, I&O's, & notes reviewed. Plan: 1. Continue conservative management. No need for surgical or percutaneous intervention. 2. Switch to oral narcotics. May discharge home tomorrow if his pain is tolerable on oral narcotics. 3. Have pt. FU in my office in 2 weeks. Subjective: Feels better this afternoon and evening with less pain. Currently eating dinner comfortably. Objective: Vital Signs Temp Pulse Resp BP Pulse Ox 37.9 C 76 18 109/57 L 90 L 01/08/17 16:00 01/08/17 16:00 01/08/17 16:00 01/08/17 16:00 01/08/17 16:00 Laboratory Results 01/08/17 04:23 01/08/17 04:23 01/07/17 01/08/17 01/09/17 05:59 05:59 05:59 Intake Total 1505 800 Output Total 350 Balance 1155 800 PT 14.9 SEC (12.0-15.0) 01/07/17 08:53 INR 1.17 (0.83-1.16) H 01/07/17 08:53 Physical Exam - Physical Exam General Appearance: WD/WN, alert, no apparent distress Abdomen: non-tender, soft Back: Other (No CVA tenderness) Neuro/Psych: alert, normal mood/affect, oriented x 3 ICD10 Worksheet Patient Problems: Problems Problem Status Onset Atrial fibrillation Acute
[2017-01-08] MEDS: PRAMIPEXOLE 0.25 MG TAB PO SCH (19:58)
[2017-01-08] MEDS: amLODIPine BESYLATE 5 MG TAB PO SCH (20:01)
[2017-01-09 05:30] LABS: % IMMATURE GRANULYOCYTES 0.4 % (0.0-1.1); ABSOLUTE IMMATURE GRANULOCYTES 0.04 10^3/uL (0.00-0.10); ADD DIFF? NO; ADD MORPH? NO; ADD SCAN? NO; ATYPICAL LYMPHOCYTE FLAG 0 (0-99); FRAGMENT RBC FLAG 10 (0-99); HEMATOCRIT 37.5 % (40.0-51.0); HEMOGLOBIN 12.3 g/dL (13.7-17.5); LEFT SHIFT FLG 0 (0-99); LIPEMIA HEMOLYSIS FLAG 80 (0-99); MEAN CELL HEMOGLOBIN CONCENTR. 32.8 g/dL (32.4-36.7); MEAN CELL VOLUME 97.7 fL (81.5-99.8); MEAN PLATELET VOLUME 10.8 fL (8.7-11.7); PLATELET CLUMPS FLAG 0 (0-99); PLATELET COUNT 179 10^3/uL (150-400); RED BLOOD CELL COUNT 3.84 10^6/uL (4.40-6.38); RED CELL DISTRIBUTION WIDTH 13.5 % (11.5-15.2)
[2017-01-09 05:43] LABS: ANION GAP 7 mEq/L (8-16); CALCIUM 8.5 mg/dL (8.5-10.4); CARBON DIOXIDE 25 mEq/l (22-31); CHLORIDE 107 mEq/L (97-110); CREATININE 0.8 mg/dL (0.7-1.3); GLOMERULAR FILTRATION RATE > 60; GLUCOSE 97 mg/dL (70-100); POTASSIUM 4.2 mEq/L (3.5-5.2); SODIUM 139 mEq/L (134-144)
[2017-01-09] MEDS: SENNOSIDES/DOCUSATE SODIUM TAB PO SCH ×2 (08:15→20:37)
[2017-01-09] MEDS: MULTIVITAMINS 1 EACH TAB PO SCH (08:15)
[2017-01-09] MEDS: buPROPion XL 150 MG TAB PO SCH (08:15)
[2017-01-09] MEDS: clonazePAM 0.5 MG TAB PO SCH ×2 (08:16→20:37)
[2017-01-09] MEDS: DILTIAZEM CD 120 MG CAP PO SCH (08:17)
--- NOTE | 2017-01-09 09:53 | HOSPPROG ---
Hospitalist Progress Note Assessment/Plan: #Renal hemorrhage. Acute, visualized on CT and ultrasound, occurred in the setting of systemic anticoagulation with Eliquis and either mass or cyst -discussed with Dr. Briones, the area where hemorrhage occurred is not enhancing and is thus unlikely to be malignancy -patient's pain is localized to the area, and I believe it is likely 2/2 increased pressure in the affected area (possibly hemorrhagic cyst) -HIDA w/o cholecystitis -UA w/o e/o hematuria, making nephrolithiasis as cause of pain unlikely -hemoglobin stable at 12.9 -hold Eliquis -RCRI score of 0 conferring 0.5% perioperative cardiovascular risk of complication, resulting in low cardiac risk for intermediate risk surgery -patient's metabolic equivalents are good and exercise has not recently declined , so there is no indication for pre-op cardiac risk stratification -Per Dr. Briones, conservative mgmt #Abdominal pain. Acute, likely 2/2 above -Paim mgmt -bowel regimen -IS -hx of opiate addiction, patient would prefer not to be on opiates outside of this acute period, if possible #Paroxysmal Atrial Fibrillation. Currently in NSR -holding eliquis, -most recent workup for CVA and pseudomonal bulbar symptoms 1 month ago, TIA vs. CVA, will require CVA ppx after this acute event. Can restart Eliquis once the pt follows up with Dr. Briones #HTN. Chronic, on home Rx. Now with Hypotension. Diet. Regular Code. Full per patient, MPOA PPx. High risk, pharm contraindicated, SCDs Dispo. Hold d/c Plan: The pt has become hypotensive, etiology unclear. He reports being on his home medications and tolerating well for a while. Cardizem was just started ad a BB stopped. Abd and flank pain are better. Etiology may be due to opiates, but has not received IV Dilaudid since last night. -Hold Discharge for now, can re-eval later today vs tomorrow -Appears Euvolemic, no IVF for now unless drops -Will check a H/H. S: No abd pain, right flank pain is better. Some dizzy when standing. No CP, SOB , palpitations. No obvious bleeding. Wants to go home. O: VSS NAD AAOx3 RRR DECREASED LUNG SOUNDS S/NT/ND NO EDEMA TOTAL CARE TIME IS 35 MINUTES Objective: Vital Signs Temp Pulse Resp BP Pulse Ox 37.1 C 105 H 12 100/69 92 01/09/17 08:00 01/09/17 08:00 01/09/17 08:00 01/09/17 09:25 01/09/17 08:00 Laboratory Results 01/09/17 04:18 01/09/17 04:18 01/08/17 01/09/17 01/10/17 05:59 05:59 05:59 Intake Total 1505 800 Output Total 350 250 300 Balance 1155 550 -300 PT 14.9 SEC (12.0-15.0) 01/07/17 08:53 INR 1.17 (0.83-1.16) H 01/07/17 08:53 ICD10 Worksheet Patient Problems: Problems Problem Status Onset Atrial fibrillation Acute
[2017-01-09] MEDS: LOSARTAN POTASSIUM 50 MG TAB PO SCH (10:09)
[2017-01-09] MEDS: PRAMIPEXOLE 0.25 MG TAB PO SCH (18:03)
[2017-01-10 06:04] LABS: % IMMATURE GRANULYOCYTES 0.6 % (0.0-1.1); ABSOLUTE IMMATURE GRANULOCYTES 0.06 10^3/uL (0.00-0.10); ADD DIFF? NO; ADD MORPH? NO; ADD SCAN? NO; ATYPICAL LYMPHOCYTE FLAG 0 (0-99); FRAGMENT RBC FLAG 0 (0-99); HEMATOCRIT 38.5 % (40.0-51.0); HEMOGLOBIN 12.6 g/dL (13.7-17.5); LEFT SHIFT FLG 0 (0-99); LIPEMIA HEMOLYSIS FLAG 80 (0-99); MEAN CELL HEMOGLOBIN CONCENTR. 32.7 g/dL (32.4-36.7); MEAN CELL VOLUME 94.8 fL (81.5-99.8); PLATELET CLUMPS FLAG 10 (0-99); PLATELET COUNT 185 10^3/uL (150-400); RED BLOOD CELL COUNT 4.06 10^6/uL (4.40-6.38); RED CELL DISTRIBUTION WIDTH 13.2 % (11.5-15.2)
[2017-01-10 06:30] LABS: ANION GAP 6 mEq/L (8-16); CALCIUM 8.4 mg/dL (8.5-10.4); CARBON DIOXIDE 28 mEq/l (22-31); CHLORIDE 107 mEq/L (97-110); CREATININE 0.8 mg/dL (0.7-1.3); GLOMERULAR FILTRATION RATE > 60; GLUCOSE 74 mg/dL (70-100); POTASSIUM 3.9 mEq/L (3.5-5.2); SODIUM 141 mEq/L (134-144)
[2017-01-10 07:08] VITALS: BP 102/74; PULSE 90; RESP 18; TEMP 97.8; O2SAT 93
[2017-01-10] MEDS: DILTIAZEM CD 120 MG CAP PO SCH (09:45)
[2017-01-10] MEDS: clonazePAM 0.5 MG TAB PO SCH (09:45)
[2017-01-10] MEDS: MULTIVITAMINS 1 EACH TAB PO SCH (09:45)
[2017-01-10] MEDS: buPROPion XL 150 MG TAB PO SCH (09:45)
[2017-01-10] MEDS: SENNOSIDES/DOCUSATE SODIUM TAB PO SCH (09:46)
[2017-01-10] MEDS ORDERED: HYDROCODONE/APAP 5/325 TAB PO PRN (09:56)
--- NOTE | 2017-01-10 10:04 | PDDCSUM ---
Discharge Summary Discharge Summary: HPI: This is a 76 yo male who was admitted due to right flank and abdominal pain. See below. He was found to have a right renal hemorrhage, which was managed conservatively. He was evaluated by Urology. Eliquis was held. Hospitalization was complicated by Hypotension. BP meds held per below. Now better. Feels good. Wants to go home. He will f/u with Dr. Briones in 2 weeks. PCP next week. Cardiology as regular intervals. DDX: #Renal hemorrhage. Acute, visualized on CT and ultrasound, occurred in the setting of systemic anticoagulation with Eliquis and either mass or cyst -discussed with Dr. Briones, the area where hemorrhage occurred is not enhancing and is thus unlikely to be malignancy -patient's pain is localized to the area, and it is likely 2/2 increased pressure in the affected area (possibly hemorrhagic cyst) -HIDA w/o cholecystitis -UA w/o e/o hematuria, making nephrolithiasis as cause of pain unlikely -hemoglobin stable at 12.9 -hold Eliquis -Per Dr. Briones, conservative mgmt -H/H stable, no signs of active bleeding on discharge. #Abdominal pain, resolved. Acute, likely 2/2 above -Paim mgmt -bowel regimen -IS -hx of opiate addiction, patient would prefer not to be on opiates outside of this acute period, if possible -he is being provided a prescription for Dixon 5/325 mg q 4hrs as needed for pain, #20. #Paroxysmal Atrial Fibrillation. Currently in NSR -holding eliquis, -most recent workup for CVA and pseudomonal bulbar symptoms 1 month ago, TIA vs. CVA, will require CVA ppx after this acute event. Can restart Eliquis once the pt follows up with Dr. Briones -Continue with Diltiazem ER #HTN. Held Norvasc and Cozzar Meds: see med rec O: VSS NAD AAOx3 RRR DECREASED LUNG SOUNDS S/NT/ND NO EDEMA total care time spent on discharge is 45 minutes
== END 2017-01-10 10:53 | disposition home or self-care (01) | DRG 700 ==
LOC: F3E 15:53
PROVIDERS: ADMIT Internal Medicine; ATTEND Family Medicine
DX: N28.89 Other specified disorders of kidney and ureter (principal); I48.0 Paroxysmal atrial fibrillation; I10 Essential (primary) hypertension; J45.909 Unspecified asthma, uncomplicated; N20.0 Calculus of kidney; K80.20 Calculus of gallbladder without cholecystitis without obstruction; Z85.46 Personal history of malignant neoplasm of prostate
CPT/HCPCS: 96374; A9537; J1170; J2405; J2550; J3010; Q9967

== ENCOUNTER 2017-01-21 09:13 | Emergency (ER) | payer OTHER ==
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
[2017-01-21] MEDS ORDERED: ACETAMINOPHEN 500 MG TAB PO ONE (10:52)
[2017-01-21 12:00] VITALS: BP 133/103; PULSE 79; RESP 16; TEMP 97.5; O2SAT 94
== END 2017-01-21 12:00 | disposition home or self-care (01) ==
DX: S86.912A Strain of unspecified muscle(s) and tendon(s) at lower leg level, left leg, initial encounter (principal); M25.462 Effusion, left knee; V28.4XXA Motorcycle driver injured in noncollision transport accident in traffic accident, initial encounter; Y92.410 Unspecified street and highway as the place of occurrence of the external cause; Y99.8 Other external cause status; Y93.55 Activity, bike riding

== ENCOUNTER 2017-01-31 09:23 | Emergency (ER) | payer OTHER ==
[2017-01-31 09:31] VITALS: RESP 16; TEMP 98.4
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
[2017-01-31 10:29] LABS: LEUKOCYTE ESTERASE,URINE 1+ (NEGATIVE)
[2017-01-31 10:31] LABS: RBC,URINE 50-182 /hpf (0-3); WBC,URINE 50-182 /hpf (0-3)
[2017-01-31 10:42] LABS: COLOR RED
[2017-01-31 11:12] LABS: % IMMATURE GRANULYOCYTES 0.2 % (0.0-1.1); ABSOLUTE IMMATURE GRANULOCYTES 0.01 10^3/uL (0.00-0.10); ADD DIFF? NO; ADD MORPH? NO; ADD SCAN? NO; ATYPICAL LYMPHOCYTE FLAG 0 (0-99); FRAGMENT RBC FLAG 0 (0-99); HEMATOCRIT 41.8 % (40.0-51.0); HEMOGLOBIN 14.2 g/dL (13.7-17.5); LEFT SHIFT FLG 0 (0-99); LIPEMIA HEMOLYSIS FLAG 90 (0-99); MEAN CELL HEMOGLOBIN 31.6 pg (27.9-34.1); MEAN CELL VOLUME 93.1 fL (81.5-99.8); MEAN PLATELET VOLUME 9.5 fL (8.7-11.7); PLATELET CLUMPS FLAG 20 (0-99); PLATELET COUNT 267 10^3/uL (150-400); RED BLOOD CELL COUNT 4.49 10^6/uL (4.40-6.38); RED CELL DISTRIBUTION WIDTH 13.3 % (11.5-15.2)
[2017-01-31 12:29] VITALS: BP 142/90; PULSE 80; O2SAT 94
== END 2017-01-31 12:29 | disposition home or self-care (01) ==
DX: N39.0 Urinary tract infection, site not specified (principal); B96.89 Other specified bacterial agents as the cause of diseases classified elsewhere; I10 Essential (primary) hypertension; J45.909 Unspecified asthma, uncomplicated

== ENCOUNTER → 2017-02-04 | Outpatient (CLI) | payer OTHER | LOC: BHFA 16:00 | PROVIDERS: ATTEND Internal Medicine Cardiovascular Disease | DX: I48.91 Unspecified atrial fibrillation (principal) ==

== ENCOUNTER → 2017-02-11 | Outpatient (CLI) | payer OTHER ==
[~2017-02-11] MED LIST changes: +IOPAMIDOL (ISOVUE-300) 100 ML BTL IV ONE; -IOPAMIDOL (ISOVUE-370) 150 ML BTL IV ONE
== END ==
LOC: CIMAGING 10:09
PROVIDERS: ATTEND Specialist
DX: N28.1 Cyst of kidney, acquired (principal); K80.20 Calculus of gallbladder without cholecystitis without obstruction
CPT/HCPCS: 74170; Q9967

== ENCOUNTER 2018-02-05 14:59 | Emergency (ER) | payer OTHER ==
[2018-02-05 15:11] VITALS: TEMP 97.9
[2018-02-05] MEDS ORDERED: ONDANSETRON 4 MG/2 ML VIAL IVP ONE (15:36)
[2018-02-05] MEDS ORDERED: NS 1,000 ML IV ONE (15:36)
[2018-02-05] MEDS ORDERED: KETOROLAC 30 MG/1 ML SDV IVP ONE (15:38)
--- NOTE | 2018-02-05 15:42 | EDPHY ---
H & P Stated Complaint: R flank pain; had hematuria last Saturday Time Seen by Provider: 02/05/18 15:31 HPI/ROS: CHIEF COMPLAINT: Hematuria and right flank pain HISTORY OF PRESENT ILLNESS: The patient is a 77-year-old man who has a history of atrial fibrillation and is on Eliquis. He also has a history of kidney stones more than 20 years ago and more recently has had episodes of hematuria being caused by a cyst on his right kidney. He states that twice in the last year he has been here with similar symptoms and it has been from bleeding into the cyst. He fired his previous urologist and now has an appointment with Dr. Perez. No fevers. He states that he stop taking his Eliquis on Saturday when he noticed hematuria. The hematuria has now stopped but he has persistent right flank pain. No nausea vomiting. No diarrhea. No fever. No trauma. REVIEW OF SYSTEMS: Constitutional: denies: chills, fever, recent illness, recent injury EENTM: denies: blurred vision, double vision, nose congestion Respiratory: denies: cough, shortness of breath Cardiac: denies: chest pain, irregular heart rate, lightheadedness, palpitations Gastrointestinal/Abdominal: See HPI Genitourinary: denies: dysuria, frequency, hematuria, pain Musculoskeletal: denies: joint pain, muscle pain Skin: denies: lesions, rash, jaundice, bruising Neurological: denies: headache, numbness, paresthesia, tingling, dizziness, weakness Hematologic/Lymphatic: denies: blood clots, easy bleeding, easy bruising Immunologic/allergic: denies: HIV/AIDS, transplant EXAM: GENERAL: Well-appearing, well-nourished and in no acute distress. HEAD: Atraumatic, normocephalic. EYES: Pupils equal round and reactive to light, extraocular movements intact, sclera anicteric, conjunctiva are normal. ENT: TMs normal, nares patent, oropharynx clear without exudates. Moist mucous membranes. NECK: Normal range of motion, supple without lymphadenopathy or JVD. LUNGS: Breath sounds clear to auscultation bilaterally and equal. No wheezes rales or rhonchi. HEART: Regular rate and rhythm without murmurs, rubs or gallops. ABDOMEN: Soft, nontender, normoactive bowel sounds. No guarding, no rebound. No masses appreciated. BACK: No CVA tenderness, no spinal tenderness, step-offs or deformities EXTREMITIES: Normal range of motion, no pitting or edema. No clubbing or cyanosis. NEUROLOGICAL: Cranial nerves II through XII grossly intact. Normal speech, normal gait. 5/5 strength, normal movement in all extremities, normal sensation PSYCH: Normal mood, normal affect. SKIN: Warm, dry, normal turgor, no visible rashes or lesions. Source: Patient Exam Limitations: No limitations - Personal History Current Tetanus Diphtheria and Acellular Pertussis (TDAP): Yes Tetanus Vaccine Date: < 10 years - Medical/Surgical History Hx Asthma: Yes Hx Chronic Respiratory Disease: No Hx Diabetes: No Hx Cardiac Disease: Yes Hx Renal Disease: No Hx Cirrhosis: No Hx Alcoholism: No Hx HIV/AIDS: No Hx Splenectomy or Spleen Trauma: No Other PMH: PMH- htn, afib, depression, asthma, ELLY. PSH- L PARATIDECTOMY, R HEEL, RADIACL PROSTATECTOMY, TONSILECTOMY - Social History Smoking Status: Never smoked Alcohol Use: Sober Drug Use: None Constitutional: Initial Vital Signs Temperature (C) 36.6 C 02/05/18 15:09 Heart Rate 64 02/05/18 15:09 Respiratory Rate 18 02/05/18 15:09 Blood Pressure 198/113 H 02/05/18 15:09 O2 Sat (%) 97 02/05/18 15:09 O2 Delivery Mode Room Air Allergies/Adverse Reactions: No Known Allergies Allergy (Verified 02/05/18 15:07) Home Medications: Medication Instructions Recorded Pramipexole Di-HCl [Mirapex 0.25 0.25 mg PO DAILY@1900 08/30/14 mg (*)] Bupropion HCl [Wellbutrin Xl] 300 mg PO DAILY 01/07/17 Diltiazem Cd [Cardizem ER 120 MG 120 mg PO DAILY 01/07/17 (*)] clonazePAM [Klonopin (*)] 0.25 mg PO BID 01/07/17 Apixaban [Eliquis] 5 mg PO 01/21/17 Cephalexin [Keflex] 500 mg PO TID #21 cap 02/05/18 Hydrocodone/APAP 5/325 [[place] 1 - 2 tab PO Q4H PRN #10 tab 02/05/18 5/325] Tamsulosin HCl [Flomax] 0.4 mg PO DAILY #10 cap 02/05/18 Medical Decision Making - Diagnostics Imaging Results: Imaging Impressions Abdomen CT 02/05/18 17:02 Impression: 1. 4 mm distal right ureteral calculus, at ureterovesical junction, results in moderate right hydronephrosis. 2. Bilateral nephrolithiasis. 3. Hemorrhagic right renal cyst is decreased in size since one year prior. No evidence of recurrent bleed into the hemorrhagic cyst. 4. Cholelithiasis. 5. No evidence of metastatic prostate cancer. Findings discussed with Emergency Department physician, Max Carrillo on 2017, 17:47. Imaging: Discussed imaging studies w/ scallop raker Radiologist ED Course/Re-evaluation: 5:45 p.m. we discussed the imaging and lab results. The patient is reassured. He refused the Toradol earlier. He states that he is currently asymptomatic. He will follow up with his urologist and already has an appointment. I will prescribe him Vicodin as he requests as well as Flomax. He declines nausea medicine. Differential Diagnosis: Partial list of the Differential diagnosis considered include but were not limited to; kidney stone, renal cyst, coagulopathy and although unlikely based on the history and physical exam, I also considered dissection, aneurysm, appendicitis, hernia. I discussed these differential diagnoses and the plan with the patient as well as the usual and expected course. The patient understands that the diagnosis is provisional and that in medicine we are not always correct and that further workup is often warranted. Usual and customary warnings were given. All of the patient's questions were answered. The patient was instructed to return to the emergency department should the symptoms at all worsen or return, otherwise to followup with the physician as we discussed. - Data Points Laboratory Results: Laboratory Results 02/05/18 16:01 02/05/18 16:01 02/05/18 02/05/18 02/05/18 16:15 16:01 16:01 WBC RBC Hgb Hct MCV MCH MCHC RDW Plt Count MPV Neut % (Auto) Lymph % (Auto) [place] % (Auto) Eos % (Auto) Baso % (Auto) Nucleat RBC Rel Count Absolute Neuts (auto) Absolute Lymphs (auto) Absolute Monos (auto) Absolute Eos (auto) Absolute Basos (auto) Absolute Nucleated RBC Immature Gran % Immature Gran # PT 13.5 SEC SEC (12.0-15.0) INR 1.01 (0.83-1.16) APTT 25.3 SEC SEC (23.0-38.0) Sodium 143 mEq/L mEq/L (135-145) Potassium 4.4 mEq/L mEq/L (3.5-5.2) Chloride 105 mEq/L mEq/L (97-110) Carbon Dioxide 24 mEq/l mEq/l (22-31) Anion Gap 14 mEq/L mEq/L (8-16) BUN 17 mg/dL mg/dL (7-23) Creatinine 0.9 mg/dL mg/dL (0.7-1.3) Estimated GFR > 60 Glucose 88 mg/dL mg/dL (70-100) Calcium 9.1 mg/dL mg/dL (8.5-10.4) Total Bilirubin 0.5 mg/dL mg/dL (0.1-1.4) Conjugated Bilirubin 0.3 mg/dL mg/dL (0.0-0.5) Unconjugated Bilirubin 0.2 mg/dL mg/dL (0.0-1.1) AST 35 IU/L IU/L (17-59) ALT 47 IU/L IU/L (21-72) Alkaline Phosphatase 94 IU/L IU/L (38-126) Total Protein 7.3 g/dL g/dL (6.3-8.2) Albumin 4.0 g/dL g/dL (3.5-5.0) Lipase 43 IU/L IU/L (23-300) Urine Color YELLOW Urine Appearance CLEAR Urine pH 6.0 (5.0-7.5) Ur Specific [place] 1.013 (1.002-1.030) Urine Protein NEGATIVE (NEGATIVE) Urine Ketones NEGATIVE (NEGATIVE) Urine Blood NEGATIVE (NEGATIVE) Urine Nitrate NEGATIVE (NEGATIVE) Urine Bilirubin NEGATIVE (NEGATIVE) Urine Urobilinogen NEGATIVE EU EU (0.2-1.0) Ur Leukocyte Esterase NEGATIVE (NEGATIVE) Urine RBC NONE SEEN /hpf /hpf (0-3) Urine WBC 1-3 /hpf /hpf (0-3) Ur Epithelial Cells NONE SEEN /lpf /lpf (NONE-1+) Urine Glucose NEGATIVE (NEGATIVE) 02/05/18 16:01 WBC 6.01 10^3/uL 10^3/uL (3.80-9.50) RBC 4.95 10^6/uL 10^6/uL (4.40-6.38) Hgb 15.8 g/dL g/dL (13.7-17.5) Hct 46.1 % % (40.0-51.0) MCV 93.1 fL fL (81.5-99.8) MCH 31.9 pg pg (27.9-34.1) MCHC 34.3 g/dL g/dL (32.4-36.7) RDW 13.1 % % (11.5-15.2) Plt Count 230 10^3/uL 10^3/uL (150-400) MPV 9.6 fL fL (8.7-11.7) Neut % (Auto) 56.2 % % (39.3-74.2) Lymph % (Auto) 25.3 % % (15.0-45.0) [place] % (Auto) 11.6 % % (4.5-13.0) Eos % (Auto) 5.2 % % (0.6-7.6) Baso % (Auto) 1.5 % % (0.3-1.7) Nucleat RBC Rel Count 0.0 % % (0.0-0.2) Absolute Neuts (auto) 3.38 10^3/uL 10^3/uL (1.70-6.50) Absolute Lymphs (auto) 1.52 10^3/uL 10^3/uL (1.00-3.00) Absolute Monos (auto) 0.70 10^3/uL 10^3/uL (0.30-0.80) Absolute Eos (auto) 0.31 10^3/uL 10^3/uL (0.03-0.40) Absolute Basos (auto) 0.09 10^3/uL 10^3/uL (0.02-0.10) Absolute Nucleated RBC 0.00 10^3/uL 10^3/uL (0-0.01) Immature Gran % 0.2 % % (0.0-1.1) Immature Gran # 0.01 10^3/uL 10^3/uL (0.00-0.10) PT INR APTT Sodium Potassium Chloride Carbon Dioxide Anion Gap BUN Creatinine Estimated GFR Glucose Calcium Total Bilirubin Conjugated Bilirubin Unconjugated Bilirubin AST ALT Alkaline Phosphatase Total Protein Albumin Lipase Urine Color Urine Appearance Urine pH Ur Specific [place] Urine Protein Urine Ketones Urine Blood Urine Nitrate Urine Bilirubin Urine Urobilinogen Ur Leukocyte Esterase Urine RBC Urine WBC Ur Epithelial Cells Urine Glucose Medications Given: Discontinued Medications Sodium Chloride (Ns) 1,000 mls @ 0 mls/hr IV EDNOW ONE; Wide Open PRN Reason: Protocol Stop: 02/05/18 15:37 Last Admin: 02/05/18 16:02 Dose: 1,000 mls Ceftriaxone Sodium/Dextrose (Rocephin 1 Gm (Premix)) 50 mls @ 100 mls/hr IV EDNOW ONE Stop: 02/05/18 18:29 Last Admin: 02/05/18 18:05 Dose: 50 mls Ketorolac Tromethamine (Toradol) 15 mg IVP EDNOW ONE Stop: 02/05/18 15:39 Last Admin: 02/05/18 17:31 Dose: Not Given Ondansetron HCl (Zofran) 4 mg IVP EDNOW ONE Stop: 02/05/18 15:37 Last Admin: 02/05/18 17:31 Dose: Not Given Departure - Departure Disposition: Home, Routine, Self-Care Clinical Impression: Calculus of right kidney Condition: Fair Referrals: Marty Farmer MD [Primary Care Provider] - As per Instructions Maulik Perez MD [Medical Doctor] - 5-7 days, call for appt. Prescriptions: Cephalexin [Keflex] 500 mg PO TID #21 cap Hydrocodone/APAP 5/325 [[place] 5/325] 1 - 2 tab PO Q4H PRN #10 tab PRN Reason: Pain, Moderate Tamsulosin HCl [Flomax] 0.4 mg PO DAILY #10 cap
[2018-02-05 16:18] LABS: PLATELET COUNT 230 10^3/uL (150-400)
[2018-02-05 16:26] LABS: INR 1.01 (0.83-1.16); PROTIME(PATIENT) 13.5 SEC (12.0-15.0)
[2018-02-05] MEDS ORDERED: IOPAMIDOL (ISOVUE-300) 100 ML BTL ONE ×2 (17:11→17:19)
[2018-02-05 17:32] VITALS: BP 157/82; PULSE 70; RESP 16; O2SAT 95
[2018-02-05] MEDS ORDERED: cefTRIAXone 1 GM in STERILE WATER INJ 10 ML IV ONE (17:44)
== END 2018-02-05 18:27 | disposition home or self-care (01) ==
DX: N20.0 Calculus of kidney (principal); E86.9 Volume depletion, unspecified; I10 Essential (primary) hypertension; J45.909 Unspecified asthma, uncomplicated; Z79.01 Long term (current) use of anticoagulants
CPT/HCPCS: 74177; 96361; 96365; 99285; J0696; Q9967; J1885

== ENCOUNTER → 2018-05-19 | Outpatient (CLI) | payer OTHER | LOC: BHFA 09:00 | PROVIDERS: ATTEND Internal Medicine Cardiovascular Disease | DX: I48.91 Unspecified atrial fibrillation (principal) ==

== ENCOUNTER → 2018-12-30 | Outpatient (CLI) | payer OTHER | LOC: FIMAGING 12:00 | PROVIDERS: ATTEND Internal Medicine | DX: R60.9 Edema, unspecified (principal); Z85.46 Personal history of malignant neoplasm of prostate; J44.9 Chronic obstructive pulmonary disease, unspecified ==